=== PATIENT | male | born 1935 | race Caucasian/White ===

== ENCOUNTER → 2020-03-22 11:14 | Outpatient (BNVA) | payer MEDICARE, OTHER, SELFPAY | PROVIDERS: PCP Family Medicine; Referring Provider Family Medicine; Visit Provider Urology | DX: Z76.89 Persons encountering health services in other specified circumstances (principal) | CPT/HCPCS: 51700; 99212 ==

== ENCOUNTER → 2020-04-16 10:28 | Outpatient (BNVA) | payer MEDICARE, OTHER, SELFPAY | PROVIDERS: PCP Family Medicine; Visit Provider Urology | DX: Z76.89 Persons encountering health services in other specified circumstances (principal) | CPT/HCPCS: 99212 ==

== ENCOUNTER → 2020-05-01 11:02 | Outpatient (BNVA) | payer MEDICARE, OTHER, SELFPAY | PROVIDERS: PCP Family Medicine; Visit Provider Urology | DX: Z76.89 Persons encountering health services in other specified circumstances (principal) | CPT/HCPCS: 99212 ==

== ENCOUNTER → 2020-06-06 11:09 | Outpatient (BNVA) | payer MEDICARE, OTHER, SELFPAY | PROVIDERS: PCP Family Medicine; Visit Provider Urology | DX: N40.1 Benign prostatic hyperplasia with lower urinary tract symptoms (principal); R33.9 Retention of urine, unspecified; N32.89 Other specified disorders of bladder | CPT/HCPCS: 99212 ==

== ENCOUNTER 2020-06-21 07:06 | Day surgery (SDC) | payer MEDICARE, OTHER, SELFPAY ==
[2020-06-13 16:35] VITALS: BMI 24.7
--- NOTE | 2020-06-20 13:12 | HO.ANESPROP2 ---
Documented by User: Lo Mandi 06/20/20 13:39 HPI - Anesthesia Eval Consult details Narrative: 84yo M for Insertion Suprapubic Tube Reviewed with Dr Juancarlos BELLO Past Medical History Medical History Bipolar 1 disorder Bladder spasms CHF (congestive heart failure) Depression GERD (gastroesophageal reflux disease) HTN (hypertension) Pacemaker Parkinson's disease Urinary retention Wheelchair confinement Functional capacity: wheelchair bound Surgical History Surgical History H/O cystoscopy H/O prostatectomy H/O right knee surgery Social History Social History Are you a primary palliative care nurse practitioner to a significant other at home: No Do you presently have visiting nurse or other home services: Yes (PT,OT,VNA, home health aide Wednesday-Wednesday 8 hours) Alcohol intake: never Smoking Status: Never smoker Use of substances other than those prescribed or required for medical reasons: No Advance Directives: No Advance Directives Information Provided: No Meds Allergies Allergy/AdvReac Type Severity Reaction Status Date / Time amoxicillin [AMOXICILLIN] AdvReac Unknown STOMACH Verified 06/21/20 07:18 UPSET Home Medications Medication Instructions Recorded Confirmed Type carvedilol 3.125 mg tablet 3.125 mg PO BID 03/22/20 06/13/20 History tamsulosin 0.4 mg capsule 0.4 mg PO DAILY 03/22/20 06/13/20 History acetaminophen 650 mg PO BEDTIME PRN 06/13/20 06/13/20 History aspirin 325 mg PO DAILY 06/13/20 06/13/20 History bethanechol chloride 50 mg PO TID 06/13/20 06/13/20 History carbidopa-levodopa TID 06/13/20 History docusate sodium [Colace] 100 mg PO DAILY 06/13/20 06/13/20 History furosemide 20 mg PO Q OTHER DAY 06/13/20 06/13/20 History guar gum [Benefiber (guar gum)] 1 tbsp PO DAILY 06/13/20 06/13/20 History lamotrigine 25 mg PO BID 06/13/20 06/13/20 History melatonin 3 mg PO BEDTIME PRN 06/13/20 06/13/20 History multivitamin 1 tab PO DAILY 06/13/20 06/13/20 History sodium polystyrene sulfonate 15 g PO DAILY 06/13/20 06/13/20 History Exam Exam Date and Time: June 20, 2020 1312 Height,Weight and Vital Signs: Height 5 ft 3 in Weight 63.503 kg Pertinent Lab Results Pertinent Lab Results: 05/11/20 Na 147 (H) K 4.8 Cl 111 (H) CO2 24 BUN 22 (H) Creat 2.0 (H) WBC 6.4 HGB 9.3 HCT 29.2 PLT 215 Narrative Narrative: [place] Pacer Interr 04/2020 on chart DDDR-80 AP 41% [employer]>99% Battery life 2.7years EKG 04/13/20 A-sensed, V-paced with Prolonged AV conduction Per cardiac note ECHO 2018 EF 30% mod to sev MR AR Documented by User: Falguni Osborn 06/21/20 08:10 PMF Past Medical History Medical History Bipolar 1 disorder Bladder spasms CHF (congestive heart failure) Depression GERD (gastroesophageal reflux disease) HTN (hypertension) Pacemaker Parkinson's disease Urinary retention Wheelchair confinement Surgical History Surgical History H/O cystoscopy H/O prostatectomy H/O right knee surgery Social History Social History Are you a primary palliative care nurse practitioner to a significant other at home: No Do you presently have visiting nurse or other home services: Yes (PT,OT,VNA, home health aide Wednesday-Wednesday 8 hours) Alcohol intake: never Smoking Status: Never smoker Use of substances other than those prescribed or required for medical reasons: No Advance Directives: No Advance Directives Information Provided: No Meds Allergies Allergy/AdvReac Type Severity Reaction Status Date / Time amoxicillin [AMOXICILLIN] AdvReac Unknown STOMACH Verified 06/21/20 07:18 UPSET Home Medications Medication Instructions Recorded Confirmed Type carvedilol 3.125 mg tablet 3.125 mg PO BID 03/22/20 06/13/20 History tamsulosin 0.4 mg capsule 0.4 mg PO DAILY 03/22/20 06/13/20 History acetaminophen 650 mg PO BEDTIME PRN 06/13/20 06/13/20 History aspirin 325 mg PO DAILY 06/13/20 06/13/20 History bethanechol chloride 50 mg PO TID 06/13/20 06/13/20 History carbidopa-levodopa TID 06/13/20 History docusate sodium [Colace] 100 mg PO DAILY 06/13/20 06/13/20 History furosemide 20 mg PO Q OTHER DAY 06/13/20 06/13/20 History guar gum [Benefiber (guar gum)] 1 tbsp PO DAILY 06/13/20 06/13/20 History lamotrigine 25 mg PO BID 06/13/20 06/13/20 History melatonin 3 mg PO BEDTIME PRN 06/13/20 06/13/20 History multivitamin 1 tab PO DAILY 06/13/20 06/13/20 History sodium polystyrene sulfonate 15 g PO DAILY 06/13/20 06/13/20 History Exam Airway Mallampati Class: II TM Dist: >3cm Neck ROM: Full Heart: RRR Lungs: CTA
[2020-06-21 07:43] VITALS: BP 130/63; PULSE 63; RESP 16; TEMP 37.3; O2SAT 100
[2020-06-21] MEDS: 0.9 % Sodium Chloride 1,000 ML 50 ML IVCONT (08:01)
--- NOTE | 2020-06-21 08:32 | MHC.SHP ---
Pre-Procedural Eval Section A The patient is an INPATIENT: No The History & Physical has been completed within 30 days and I have reviewed it.: Yes Section B Chief Complaint: urine retension Allergies: Allergies Allergy/AdvReac Type Severity Reaction Status Date / Time amoxicillin [AMOXICILLIN] AdvReac Unknown STOMACH Verified 06/21/20 07:18 UPSET Plan Diagnosis/Plan: Unchanged I have reviewed the history and physical and performed a pertinent physical examination on my patient. No changes have occurred unless specified.
--- NOTE | 2020-06-21 09:38 | P.BOP_ITS ---
Brief Operative Note Date of Service: 06/21/20 Post-op diagnosis: same Procedure: Suprapubic tube placement Implants: Twenty [place] Hernandez catheter Surgeon: Puneet Azar III, MD Anesthesia: GLMA Estimated blood loss (mL): 0 Pathology: none sent Condition: stable Disposition: same day
--- NOTE | 2020-06-21 09:40 | P.OP_ITS ---
Operative Note Operative Note Date of Service: 06/21/20 Narrative: Preop diagnosis neurogenic bladder Postop diagnosis neurogenic bladder Surgeons ahmet Procedure suprapubic tube placement anesthesia general estimated blood loss none complications none drains 20 [place] Hernandez catheter Patient was taken to the operating room after adequate with anesthesia was achieved patient underwent a time-out demonstrating correct patient correct procedure. Patient was placed in dorsal lithotomy position. Pre-existing Hernandez catheter was removed. Patient then had a Nevigo tractor placed the the urethra and palpated on the lower abdomen. Air palpation was marked patient had in cision made the skin and then with the tractor against the abdominal wall Bovie cautery was used to expose the end of the tractor which was brought to the incision. A jaws were opened for 20 [place] Hernandez catheter was placed and then inserted into the patient's bladder via the tractor. Patient underwent cystoscopy the balloon was filled under direct vision. Patient's suprapubic tube r is in his bladder. After this the tube was sutured into place.
[2020-06-21 09:45] VITALS: BP 120/52; PULSE 60; RESP 16; TEMP 36.2; O2SAT 96
[2020-06-21 09:50] VITALS: BP 107/56; PULSE 66; RESP 16; O2SAT 95
[2020-06-21 09:55] VITALS: BP 115/57; PULSE 64; RESP 16; O2SAT 96
[2020-06-21 10:00] VITALS: BP 119/62; PULSE 65; RESP 18; O2SAT 97
[2020-06-21 10:15] VITALS: BP 122/64; PULSE 63; RESP 16; TEMP 36.2; O2SAT 97
--- NOTE | 2020-06-21 10:27 | HO.POSTANES ---
Post Anesthesia Evaluation Post Anesthesia Evaluation Vital Signs: Vital Signs Temp Pulse Resp BP Pulse Ox 06/21/20 10:15 97.2 F 63 16 122/64 97 06/21/20 10:00 65 18 119/62 97 06/21/20 09:55 64 16 115/57 L 96 06/21/20 09:50 66 16 107/56 L 95 06/21/20 09:45 97.2 F 60 16 120/52 L 96 06/21/20 07:43 99.2 F 63 16 130/63 100 Anesthesia: General LMA Mental Status: Awake Pain Control: Satisfactory Nausea/Vomiting: None Hydration: Adequate Anesthesia-Related Issues: No Anes. Related Issues
== END 2020-06-21 10:43 | disposition home or self-care (01) ==
PROVIDERS: PCP Family Medicine; Visit Provider Urology
PROC: (CPT 51102; principal; 2020-06-21 08:50)
DX: N40.1 Benign prostatic hyperplasia with lower urinary tract symptoms (principal); N31.9 Neuromuscular dysfunction of bladder, unspecified; R33.8 Other retention of urine; N32.89 Other specified disorders of bladder; G20 Parkinson's disease; I11.0 Hypertensive heart disease with heart failure; I50.9 Heart failure, unspecified; F31.9 Bipolar disorder, unspecified; Z99.3 Dependence on wheelchair; Z79.899 Other long term (current) drug therapy; Z88.1 Allergy status to other antibiotic agents
CPT/HCPCS: 51102; J1580; J1956; J2370; J3010

== ENCOUNTER → 2020-07-04 13:28 | Outpatient (BNVA) | payer MEDICARE, OTHER, SELFPAY | PROVIDERS: PCP Family Medicine; Visit Provider Urology | DX: R33.9 Retention of urine, unspecified (principal) | CPT/HCPCS: 99212 ==

== ENCOUNTER → 2020-08-01 13:10 | Outpatient (BNVA) | payer MEDICARE, OTHER, SELFPAY | PROVIDERS: PCP Family Medicine; Visit Provider Urology | DX: Z43.5 Encounter for attention to cystostomy (principal); N40.1 Benign prostatic hyperplasia with lower urinary tract symptoms; N13.8 Other obstructive and reflux uropathy; R33.8 Other retention of urine | CPT/HCPCS: 51705; 99212 ==

== ENCOUNTER → 2021-02-26 14:45 | Outpatient (BNVA) | payer MEDICARE, OTHER, SELFPAY | PROVIDERS: Visit Provider Urology | DX: R33.9 Retention of urine, unspecified (principal); N31.9 Neuromuscular dysfunction of bladder, unspecified | CPT/HCPCS: 99212 ==

== ENCOUNTER → 2021-08-27 15:11 | Outpatient (BNVA) | payer MEDICARE, OTHER, SELFPAY | PROVIDERS: Visit Provider Urology | DX: N31.9 Neuromuscular dysfunction of bladder, unspecified (principal) | CPT/HCPCS: 52000; 99212 ==

== ENCOUNTER → 2021-11-14 10:32 | Outpatient (BNVA) | payer MEDICARE, OTHER, SELFPAY | PROVIDERS: PCP Family Medicine; Visit Provider Urology | DX: R33.9 Retention of urine, unspecified (principal) | CPT/HCPCS: 51705 ==

== ENCOUNTER → 2021-12-05 11:06 | Outpatient (BNVA) | payer MEDICARE, OTHER, SELFPAY | PROVIDERS: PCP Family Medicine; Visit Provider Urology | DX: Z43.5 Encounter for attention to cystostomy (principal); N31.9 Neuromuscular dysfunction of bladder, unspecified | CPT/HCPCS: 51705 ==

== ENCOUNTER → 2022-03-05 12:44 | Outpatient (BNVA) | payer MEDICARE, OTHER, SELFPAY | PROVIDERS: PCP Family Medicine; Visit Provider Urology | DX: N31.9 Neuromuscular dysfunction of bladder, unspecified (principal); N39.0 Urinary tract infection, site not specified; R33.9 Retention of urine, unspecified | CPT/HCPCS: 99212 ==

== ENCOUNTER → 2022-03-13 11:15 | Outpatient (REF) | payer MEDICARE, OTHER, SELFPAY ==
--- NOTE | ~2022-03-13 | NM_ITS ---
EXAMINATION: NM BONE SCAN OF THE WHOLE BODY CLINICAL INFORMATION: Localized enlarged lymph nodes. COMPARISON: No previous bone scan is available for comparison. A radiograph of the chest dated 12/15/[address] scan of the abdomen and pelvis on the same date are available for comparison. TECHNIQUE: Multiple gamma scintillation camera images of the whole body were performed 2.5 hours following the intravenous administration of 25 mCi Tc-99m MDP. FINDINGS: In the head, no significant abnormalities are present. In the thoracic cage and upper extremities, there is mildly increased activity in the sternoclavicular joints bilaterally and minimally in the acromioclavicular joints bilaterally. There is also minimally increased activity in the sternomanubrial articulation. In the spine, there is mildly increased activity in the right posterior elements at L5-S1, probably due to facet arthropathy. There is minimally increased activity in the right costovertebral junction of T8. A minimal thoracolumbar scoliosis with lumbar convexity to the right is also noted. In the pelvis, no significant abnormalities are present. In the lower extremities, no significant abnormalities are present. No other definite bony abnormalities are noted. The urinary bladder and faint visualization of both kidneys are noted. A bladder catheter is in place. NM/NM bone scan whole body IMPRESSION: A few mild nonspecific abnormalities are noted as described above and these are all likely arthritic or traumatic in etiology. None of these abnormalities is strongly suspicious for metastatic disease.
== END ==
LOC: HO.NUCMED 11:15
PROVIDERS: PCP Family Medicine; Visit Provider Urology
DX: R59.0 Localized enlarged lymph nodes (principal)
CPT/HCPCS: 78306; A9503

== ENCOUNTER → 2022-04-09 09:22 | Outpatient (BNVA) | payer MEDICARE, OTHER, SELFPAY | PROVIDERS: PCP Family Medicine; Visit Provider Urology | DX: N40.1 Benign prostatic hyperplasia with lower urinary tract symptoms (principal); N31.9 Neuromuscular dysfunction of bladder, unspecified | CPT/HCPCS: Q3014 ==

== ENCOUNTER 2023-07-15 10:32 | Outpatient (AMB) | payer MEDICARE, OTHER, SELFPAY ==
--- NOTE | 2023-07-15 10:39 | MHC.OFFVIS ---
Intake Intake Visit Reasons: 6M Follow Up(Neurogenic Bladder) Intake Note: Patient is Present for Follow Up Urology Medication: Methenamine, Oxybutynin Antibiotic Allergies:Amoxicillin Blood Thinners:Aspirin Pharmacy Confirmed: [facility] Patient has concerns regarding Antibiotic refill for catheter changes he receives through [facility] monthly Allergies amoxicillin [AMOXICILLIN] Adverse Reaction (Unknown, Verified 07/15/23 10:40) STOMACH UPSET HPI HPI Comments History of Present Illness Details Trell is a pleasant elderly male. He is a patient with Dr Orellana. He is seen for the following urologic issues - neurogenic bladder Six-month neurogenic bladder review Had diagnosed right proximal ureteric stone in March Nephrostomy tube placed Has recovered from septic episode Notes from [facility] Discussed with son today. Plan for right ESWL to try and remove right nephrostomy tube Refill medications regarding neurogenic bladder Prior retroperitoneal lymphadenopathy noted on imaging Bone scan shows nonspecific age related changes but no evidence of metastatic disease. Neurogenic bladder Doing well suprapubic tube Reported episodes of hematuria. Cystoscopy -12/05/2021- with no abnormality in bladder Continue with his SPT changes for the [facility] Lower urinary tract symptom Long history of progressive lower urinary tract symptoms 2019 unable to empty bladder and multiple episodes of retention Status post laser prostatectomy but continues have urinary retention and high postvoid residuals May 2020 suprapubic tube placement Family is very happy. He is able to have significant independence. Is using drainage bag currently. Question prostate cancer on CT scan 03/14 [facility] [place] Medical History GERD (gastroesophageal reflux disease) Pacemaker Wheelchair confinement Parkinson's disease Depression Bipolar 1 disorder CHF (congestive heart failure) HTN (hypertension) Bladder spasms Urinary retention Surgical History H/O cystoscopy H/O prostatectomy H/O right knee surgery Social History Are you a primary home care and home health aides teacher to a significant other at home: No Do you presently have visiting nurse or other home services: Yes (PT,OT,[facility]NA, home health aide Wednesday-Wednesday 8 hours) Alcohol intake: never Review of Systems Const Denies chills and Denies fever(s) Card Reports no additional complaints and Denies syncope Resp Denies cough GI Denies abdominal pain and Denies heartburn Reports as per HPI and Denies change in libido Neuro Denies syncope Psych Denies change in libido Endo Denies change in libido Physical Exam Const General: cooperative, healthy appearing, comfortable and no acute distress Orientation/consciousness: patient oriented x3 HEENT Face and sinus: Yes normal facial exam Mouth: moist mucous membranes Neck Neck: Yes normal visual inspection, Yes full ROM and Yes trachea midline Chest Chest palpation & inspection: normal inspection of the chest Resp Effort & Inspection: normal respiratory effort, able to speak in complete sentences and no respiratory distress GI Inspection: Yes normal to inspection Back/Spine/Pelvis Cervical Spine: normal cervical lordosis Thoracic/Lumbar Spine: thoracic and lumbar spine normal to inspection Skin General skin exam: no rashes or lesions noted Neuro General: patient oriented x3, gait normal, tone normal and moves all extremities Extrem General: Yes normal to inspection and Yes capillary refill normal Assessment & Plan Assessment & Plan (1) Neurogenic urinary bladder disorder: Code(s): N31.9 - Neuromuscular dysfunction of bladder, unspecified (2) Renal and ureteric calculus: Code(s): N20.2 - Calculus of kidney with calculus of ureter Plan Extracorporeal Shock Wave Lithotripsy We discussed the nature of the decision and reasonable alternatives for performing the above surgery. Interventions include chemical dissolution, ESWL, ureteroscopy with laser lithotripsy and stent placement, PCNL. Options such as medical therapy were discussed. The relative uncertainties and benefits related to each alternate procedure were adequately discussed. General surgical risks including, but not limited to, pain, bleeding, infection, myocardial infarction, pulmonary embolus, deep vein thrombosis and cerebrovascular accident which may result in further hospitalization were discussed. Full disclosure of the procedure as well as all major risks, benefits and complications were discussed including but not limited to risks of bleeding, injury to the kidney with hematoma or ceasar-hematoma, failure to fragments stone, potential for ureteric obstruction from stone passage and need for secondary procedures. There is a small long-term risk of hypertension and a question elias of diabetes. Success rate of fragmentation and passage is approximately 70- 75%. This is compared to the risks and benefits for ureteroscopy which has a higher success rate but is a more invasive procedure. The success rate of the procedure was discussed. Success of the procedure in the short-term does not necessarily guarantee that long-term success will be maintained. Suitable follow up will need to be maintained. The patient showed understanding of the discussion as well as the typical recovery time, and the outpatient nature of this procedure. Opportunity was given for questions. Repeat-back protocol used to confirm understanding. They wish to proceed with right ESWL Medications: Changed From ascorbic acid (vitamin C) must attend 07/15/23 appt for further refills 1 g PO DAILY 90 days 90 tabs 0RF N31.9 - Neuromuscular dysfunction of bladder, unspecified, N39.0 - Urinary tract infection, site not specified To ascorbic acid (vitamin C) Daily 1 g PO DAILY 90 tabs 1RF 90 days N31.9 - Neuromuscular dysfunction of bladder, unspecified, N39.0 - Urinary tract infection, site not specified From methenamine hippurate must attend 07/15/23 appt for further refills 1 g PO DAILY 90 days 90 tabs 0RF N31.9 - Neuromuscular dysfunction of bladder, unspecified, N39.0 - Urinary tract infection, site not specified To methenamine hippurate Daily 1 g PO DAILY 90 tabs 1RF 90 days N31.9 - Neuromuscular dysfunction of bladder, unspecified, N39.0 - Urinary tract infection, site not specified Refilled sulfamethoxazole-trimethoprim 400-80 mg (Bactrim) Take morning and afternoon of catheter change 1 tab PO BID 24 tabs 0RF R33.9 - Retention of urine, unspecified Patient Instructions: Imaging studies, laboratory and physical exam results were discussed and reviewed in detail. No major barriers to patient understanding were identified. An opportunity to ask questions regarding the treatment plan was provided. All questions were answered. The patient expressed understanding and agreement with the above treatment plan. The patient is aware they should contact our office by phone for worsening of their current condition or the appearance of new urologic symptoms. Compliance is encouraged with any medications and followup testing that is ordered. It is a privilege to participate in the urologic care of your patient. If you have any questions or concerns regarding treatment for the above conditions, or other urologic issues, please do not hesitate to contact me. The office telephone contact is [phone]. This note is constructed using voice recognition software. While every effort has been made to ensure accuracy supervisor plasma errors may have been included. Yours sincerely, Dr Palomo Ribera MD, ABIEL [facility] - Urology Providers of Expert, Compassionate Care for the Genitourinary System Coding Level of Care Code Est Pt Level 4 (78699) Diagnoses Neurogenic urinary bladder disorder N31.9 Renal and ureteric calculus N20.2
== END 2023-07-15 11:15 | disposition home or self-care (01) ==
PROVIDERS: PCP Family Medicine; Visit Provider Urology
DX: N31.9 Neuromuscular dysfunction of bladder, unspecified (principal); N20.2 Calculus of kidney with calculus of ureter
CPT/HCPCS: 99214

== ENCOUNTER → 2023-07-15 10:32 | Outpatient (BNVA) | payer MEDICARE, OTHER, SELFPAY | PROVIDERS: PCP Family Medicine; Visit Provider Urology | DX: N31.9 Neuromuscular dysfunction of bladder, unspecified (principal); N20.2 Calculus of kidney with calculus of ureter | CPT/HCPCS: 99212 ==

== ENCOUNTER 2023-09-08 06:20 | Day surgery (SDC) | payer MEDICARE, OTHER, SELFPAY ==
--- NOTE | ~2023-09-08 | XR_ITS ---
EXAMINATION: XR ABDOMEN KUB CLINICAL INDICATION: Right kidney stones COMPARISON: None available. TECHNIQUE: AP view of the abdomen. FINDINGS: Pacer wires, right pigtail drainage catheter and pelvic catheter are in place. Left hemipelvic phleboliths. Retained fecal material. Solid visceral outlines are obscured. Degenerative changes and dextroscoliosis. XR/XR KUB IMPRESSION: No identifiable radiopaque renal calculi.
[2023-09-08 07:59] VITALS: BMI 24.8
[2023-09-08 08:06] VITALS: BP 139/68; PULSE 60; RESP 18; TEMP 37.1; O2SAT 99
--- NOTE | 2023-09-08 08:07 | HO.ANESPROP2 ---
[facility] Active Problems Active Problems: All Active Problems Renal and ureteric calculus (Acute) Neurogenic urinary bladder disorder (Acute) BPH loc w urin obs/LUTS (Acute) Bladder spasms (Acute) Urinary retention (Acute) Past Medical History Medical History (Updated 09/03/23 @ 09:05 by Shweta Lawson, MAVIS) GERD (gastroesophageal reflux disease) Pacemaker Wheelchair confinement Parkinson's disease Depression Bipolar 1 disorder CHF (congestive heart failure) HTN (hypertension) Bladder spasms Urinary retention Functional capacity: wheelchair bound Family History Family history of problems with anesthesia: No Surgical History Surgical History History of suprapubic catheter H/O cystoscopy H/O prostatectomy H/O right knee surgery History of Problems with Anesthesia: No Social History Social History Are you a primary healthcare market consultant to a significant other at home: No Do you presently have visiting nurse or other home services: Yes (PT,OT,[facility]NA, home health aide Wednesday-Wednesday 8 hours) Alcohol intake: never Advance Directives: No Advance Directives Information Provided: Yes Meds Allergies Allergy/AdvReac Type Severity Reaction Status Date / Time amoxicillin [AMOXICILLIN] AdvReac Intermediate STOMACH Verified 09/08/23 08:01 UPSET Active Medications: Current Medications Fentanyl (Fentanyl Citrate/Pf 100 Mcg/2 Ml Vial) 25 mcg IVPUSH Q5M PRN; Protocol PRN Reason: Pain, Moderate(Pain Scale 4-6) Stop: 09/08/23 13:44 Hydromorphone HCl (Hydromorphone Hcl 0.5 Mg/0.5 Ml Syringe) 0.5 mg IVPUSH Q5M PRN; Protocol PRN Reason: Pain, Severe (Pain Scale 7-10) Stop: 09/08/23 13:45 Home Medications ?Medication ?Instructions ?Recorded ?Confirmed ?Last Taken ?Type carvedilol 3.125 mg tablet 3.125 mg PO BID 03/22/20 09/03/23 Unknown History acetaminophen 325 mg tablet 650 mg PO BEDTIME PRN Pain 06/13/20 09/03/23 Unknown History aspirin 325 mg tablet 325 mg PO DAILY 06/13/20 06/13/20 Unknown History carbidopa-levodopa TID 06/13/20 Unknown History docusate sodium 100 mg capsule 100 mg PO DAILY 06/13/20 09/03/23 Unknown History (Colace) furosemide 20 mg tablet 20 mg PO Q OTHER DAY 06/13/20 09/03/23 Unknown History guar gum 1 tbsp PO DAILY 06/13/20 06/13/20 Unknown History lamotrigine 25 mg tablet 25 mg PO BID 06/13/20 09/03/23 Unknown History melatonin 3 mg capsule 3 mg PO BEDTIME PRN Insomnia 06/13/20 06/13/20 Unknown History multivitamin 1 tab PO DAILY 06/13/20 09/03/23 Unknown History sodium polystyrene sulfonate 15 g PO DAILY 06/13/20 06/13/20 Unknown History lisinopril 2.5 mg tablet 2.5 mg PO DAILY 08/27/21 09/03/23 Unknown History baclofen 10 mg tablet 10 mg PO QID PRN Pain 09/03/23 09/03/23 Unknown History bsojlv-rinuoete-lkudsaf 1 cap PO TID 09/03/23 09/03/23 Unknown History 36,000-114,000-180,000 unit capsule,delay rel (Creon) tamsulosin 0.4 mg capsule 0.4 mg PO DAILY 09/03/23 09/03/23 Unknown History Exam Height,Weight and Vital Signs: Height 5 ft 4 in Weight 65.631 kg Airway Mallampati Class: II TM Dist: <=3cm Neck ROM: Full Loose/Missing/Broken Teeth: No Heart: rrr Lungs: cta Assessment and Plan Assessment Anesthesia Assessment: Anesthesia Plan Discussed and Chart Reviewed Final Anesthetic Review Family History of Problems with Anesthesia: No History of Problems with Anesthesia: No NPO: Yes ASA Class: III Final Preanesthetic Review: No Changes in Pt Med Stat, Meds/Allgs Chart Reviewed, Consent Obtained/Reviewed and Anes Risks/Benef Reviewed Patient Risk: Intermediate Procedure Risk: Intermediate Anesthetic Plan Anesthetic Plan: MAC: Disposition: Standard PACU
--- NOTE | 2023-09-08 08:09 | MHC.SHP ---
Pre-Procedural Eval Section A - 24 Hr Update-Section A only Date of Service: 09/08/23 The patient is an INPATIENT: No Changes since office visit: No Cold of Flu in the past 2 weeks, No New Medical Problems, No Changes in Medication and No Patient answered all questions The patient has been examined within 24 hours of the surgical procedure. The History & Physical has been completed within 30 days and I have reviewed it.: Yes Section B - Complete if H&P > 30 days Chief Complaint: Calculus of kidney with calculus of ureter Details of Present Illness: Right upper ureteric stone with PCN Allergies: Allergies Allergy/AdvReac Type Severity Reaction Status Date / Time amoxicillin [AMOXICILLIN] AdvReac Intermediate STOMACH Verified 09/08/23 08:01 UPSET Review of Systems Sugical H&P ROS: Negative: Constitution, Cardiovascular, Respiratory, Neurological, Psychiatric, Hem-Onc, Allergic/Immunologic, Gastrointestinal, Genitourinary, Musculoskeletal, Integumentary, Endocrine and Eyes/Ears/Nose/Throat Exam Surgical H&P Exam: Normal: HEENT, Normal: Heart, Normal: Lungs, Normal: Extremities, Normal: Abdomen, Normal: Skin and Normal: Neurological Plan Diagnosis/Plan: Unchanged (Right ESWL with potential removal of right PCN) I have reviewed the history and physical and performed a pertinent physical examination on my patient. No changes have occurred unless specified. Time Spent With Patient Time: Total time managing care of this patient today ____ minutes.
--- NOTE | 2023-09-08 08:55 | P.OP_ITS ---
Operative Note Operative Note Date of Service: 09/08/23 Narrative: PreOperative Diagnosis: right Renal stones Post Operative Diagnosis: no right stones seen Procedure: right nephrostogram Surgeon: Dr Palomo Ribera Anesthesia: mac/sedation Indications for procedure: The patient understands ESWL may be a staged procedure and subsequent int ervention may be required based on imaging after ESWL. Quoted stone clearance rates for a solitary procedure are in the 70-80% range based primarily on stone location. They also understand there is a risk of bleeding to the kidney, infection, damage to adjacent organs, and stone migration following the procedure. - Imaging 8mm right proximal ureter from [place] Procedure: After informed consent was verified the patient was brought to the operating room and placed in a supine position. Anesthesia was performed per protocol. Safety pause time-out was performed. Imaging was displayed in the room and laterality confirmed. No stone seen on US Fluroscopy performed - no stone clearly visible Antegrade nephrostomy performed Has good drainage to bladder No filling defect seen Decision made to not proceed with ESWL. Nephrostomy tube was capped. The patient tolerated the procedure well and was transferred to the recovery area upon completion. Post procedure imaging will be organized. There was no evidence for flank discoloration. Findings discussed with son. Two week follow-up for PCN removal. Breast [place] Node Biopsy Substrate(s) used for sentinel node biopsy in the non-neoadjuvant setting: Radiotracer and Clips General Surg. - Synoptic Notes Breast [place] Node Biopsy Substrate(s) used for sentinel node biopsy in the non-neoadjuvant setting: Radiotracer and Clips
[2023-09-08 08:59] VITALS: BP 139/56; PULSE 70; RESP 16; TEMP 36.6; O2SAT 100
[2023-09-08 09:14] VITALS: BP 118/63; PULSE 60; RESP 18; O2SAT 99
[2023-09-08 09:29] VITALS: BP 121/59; PULSE 60; RESP 18; O2SAT 99
[2023-09-08 09:44] VITALS: BP 130/59; PULSE 60; RESP 18; TEMP 36.8; O2SAT 97
== END 2023-09-08 11:33 | disposition home or self-care (01) ==
PROVIDERS: PCP Family Medicine; Visit Provider Urology
PROC: (CPT 50590; principal; 2023-09-08 08:30)
DX: N20.2 Calculus of kidney with calculus of ureter (principal); N31.9 Neuromuscular dysfunction of bladder, unspecified; R33.9 Retention of urine, unspecified; N32.89 Other specified disorders of bladder; Z90.79 Acquired absence of other genital organ(s); G20.A1 Parkinson's disease without dyskinesia, without mention of fluctuations; I11.0 Hypertensive heart disease with heart failure; I50.9 Heart failure, unspecified; Z95.0 Presence of cardiac pacemaker; F31.9 Bipolar disorder, unspecified; Z79.899 Other long term (current) drug therapy; Z88.1 Allergy status to other antibiotic agents; Z99.3 Dependence on wheelchair
CPT/HCPCS: 50431; 74018; J0131; J1956; J2250; J2704; J3010; Q9967

== ENCOUNTER → 2023-09-08 06:20 | Outpatient (BNV) | payer MEDICARE, OTHER, SELFPAY | PROVIDERS: PCP Family Medicine; Visit Provider Urology | DX: N20.2 Calculus of kidney with calculus of ureter (principal) | CPT/HCPCS: 50430 ==

== ENCOUNTER 2023-11-18 10:11 | Outpatient (AMB) | payer MEDICARE, OTHER, SELFPAY ==
--- NOTE | 2023-11-18 10:13 | A.OFFVIS_ITS ---
Intake Visit Reasons: follow up Intake Note: Patient is present for f/u Urology Medication:oxybutynin,ascorbic acid,sulfamethoxazole,methenamine hippurate Antibiotic Allergy:amoxicillin Blood Thinner:aspirin Health Support Specialist Required: No Allergies amoxicillin [AMOXICILLIN] Adverse Reaction (Intermediate, Verified 11/18/23 10:14) STOMACH UPSET Medication List - Last Reconciled 11/18/23 by Palomo Ribera MD acetaminophen 650 mg PO BEDTIME PRN ascorbic acid (vitamin C) 1 g PO DAILY 90 days aspirin 325 mg PO DAILY baclofen 10 mg PO QID PRN [carbidopa-levodopa TID] carvedilol 3.125 mg PO BID docusate sodium (Colace) 100 mg PO DAILY furosemide 20 mg PO Q OTHER DAY guar gum 1 tbsp PO DAILY lamotrigine 25 mg PO BID [id number]-fomdrpb 36,000-114,000- 180,000 unit (Creon) 1 cap PO TID lisinopril 2.5 mg PO DAILY melatonin 3 mg PO BEDTIME PRN methenamine hippurate 1 g PO DAILY 90 days multivitamin 1 tab PO DAILY oxybutynin chloride 5 mg PO BID-TID PRN sodium polystyrene sulfonate 15 grams PO DAILY sulfamethoxazole-trimethoprim 400-80 mg (Bactrim) 1 tab PO BID HPI Comments Details: Trell is a pleasant elderly male. He is a patient with Dr Orellana. He is seen for the following urologic issues - neurogenic bladder Six-month neurogenic bladder review No stone on imaging PCN tube removed today Continues with monthly changes Refilled medications Six-month follow-up Neurogenic bladder Doing well suprapubic tube Reported episodes of hematuria. Cystoscopy -12/05/2021- with no abnormality in bladder Continue with his SPT changes for the VNA Lower urinary tract symptom Long history of progressive lower urinary tract symptoms 2019 unable to empty bladder and multiple episodes of retention Status post laser prostatectomy but continues have urinary retention and high postvoid residuals May 2020 suprapubic tube placement Family is very happy. He is able to have significant independence. Is using drainage bag currently. Question prostate cancer on CT scan 03/14 Had episode of infected right renal stone which dissolved 05/15 [facility] Medical History (Updated 09/03/23 @ 09:05 by Shweta Lawson RN) GERD (gastroesophageal reflux disease) Pacemaker Wheelchair confinement Parkinson's disease Depression Bipolar 1 disorder CHF (congestive heart failure) HTN (hypertension) Bladder spasms Urinary retention Surgical History History of suprapubic catheter H/O cystoscopy H/O prostatectomy H/O right knee surgery Social History Are you a primary residential care facility manager to a significant other at home: No Do you presently have visiting nurse or other home services: Yes (PT,OT,VNA, home health aide Wednesday-Wednesday 8 hours) Alcohol intake: never Patient Tobacco Use Status: Never used Tobacco Review of Systems Const Denies chills and Denies fever(s) Card Reports no additional complaints and Denies syncope Resp Denies cough GI Denies abdominal pain and Denies heartburn Reports as per HPI and Denies change in libido Neuro Denies syncope Psych Denies change in libido Endo Denies change in libido Physical Exam Const General: cooperative, healthy appearing, comfortable and no acute distress Orientation/consciousness: patient oriented x3 HEENT Face and sinus: Yes normal facial exam Mouth: moist mucous membranes Neck Neck: Yes normal visual inspection, Yes full ROM and Yes trachea midline Chest Chest palpation & inspection: normal inspection of the chest Resp Effort & Inspection: normal respiratory effort, able to speak in complete sentences and no respiratory distress GI Inspection: Yes normal to inspection Back/Spine/Pelvis Cervical Spine: normal cervical lordosis Thoracic/Lumbar Spine: thoracic and lumbar spine normal to inspection Skin General skin exam: no rashes or lesions noted Neuro General: patient oriented x3, gait normal, tone normal and moves all extremities Extrem General: Yes normal to inspection and Yes capillary refill normal Assessment & Plan Assessment & Plan (1) Renal and ureteric calculus: Code(s): N20.2 - Calculus of kidney with calculus of ureter Category: Medical (2) Neurogenic urinary bladder disorder: Code(s): N31.9 - Neuromuscular dysfunction of bladder, unspecified Category: Medical Plan Six-month follow-up Medications: Refilled oxybutynin chloride Use p.r.n. for bladder spasm 5 mg PO BID-TID PRN 30 tabs 5RF bladder spasms R33.9 - Retention of urine, unspecified ascorbic acid (vitamin C) Daily 1 g PO DAILY 90 days 90 tabs 1RF N31.9 - Neuromuscular dysfunction of bladder, unspecified, N39.0 - Urinary tract infection, site not specified methenamine hippurate Daily 1 g PO DAILY 90 days 90 tabs 1RF N31.9 - Neuromuscular dysfunction of bladder, unspecified, N39.0 - Urinary tract infection, site not specified Patient Instructions: Imaging studies, laboratory and physical exam results were discussed and reviewed in detail. No major barriers to patient understanding were identified. An opportunity to ask questions regarding the treatment plan was provided. All questions were answered. The patient expressed understanding and agreement with the above treatment plan. The patient is aware they should contact our office by phone for worsening of their current condition or the appearance of new urologic symptoms. Compliance is encouraged with any medications and followup testing that is ordered. It is a privilege to participate in the urologic care of your patient. If you have any questions or concerns regarding treatment for the above conditions, or other urologic issues, please do not hesitate to contact me. The office telephone contact is [phone]. This note is constructed using voice recognition software. While every effort has been made to ensure accuracy cyber software engineer errors may have been included. Yours sincerely, Dr Palomo Ribera MD, [facility] - Urology Providers of Expert, Compassionate Care for the Genitourinary System Coding Level of Care Code Est Pt Level 3 (66187) Diagnoses Renal and ureteric calculus N20.2 Neurogenic urinary bladder disorder N31.9
== END 2023-11-18 10:35 | disposition home or self-care (01) ==
LOC: HO.HUSH 10:11
PROVIDERS: PCP Family Medicine; Visit Provider Urology
DX: N20.2 Calculus of kidney with calculus of ureter (principal); N31.9 Neuromuscular dysfunction of bladder, unspecified
CPT/HCPCS: 99213

== ENCOUNTER → 2023-11-18 10:11 | Outpatient (BNVA) | payer MEDICARE, OTHER, SELFPAY | PROVIDERS: PCP Family Medicine; Visit Provider Urology | DX: N31.9 Neuromuscular dysfunction of bladder, unspecified (principal); N20.2 Calculus of kidney with calculus of ureter | CPT/HCPCS: 99212 ==

== ENCOUNTER 2024-05-08 11:05 | Outpatient (AMB) | payer MEDICARE, OTHER, SELFPAY ==
--- NOTE | 2024-05-08 11:18 | A.OFFVIS_ITS ---
Intake Visit Reasons: 6m follow up Intake Note: Patient presents today for follow up on: neurogenic bladder disorder Urology Medication:oxybutynin,ascorbic acid,sulfamethoxazole,methenamine Antibiotic Allergy:amoxicillin Blood Thinner:aspirin Drafting Engineer Required: No Accompanied by: Unknown Allergies amoxicillin [AMOXICILLIN] Adverse Reaction (Intermediate, Verified 05/08/24 11:48) STOMACH UPSET Medication List - Last Reconciled 05/08/24 by BRITANY Hale acetaminophen 650 mg PO BEDTIME PRN ascorbic acid (vitamin C) 1 g PO DAILY 90 days aspirin 325 mg PO DAILY baclofen 10 mg PO QID PRN [carbidopa-levodopa TID] carvedilol 3.125 mg PO BID docusate sodium (Colace) 100 mg PO DAILY furosemide 20 mg PO Q OTHER DAY guar gum 1 tbsp PO DAILY lamotrigine 25 mg PO BID oodivw-mfloigmi-netbkig 36,000-114,000- 180,000 unit (Creon) 1 cap PO TID lisinopril 2.5 mg PO DAILY melatonin 3 mg PO BEDTIME PRN methenamine hippurate 1 g PO DAILY 90 days multivitamin 1 tab PO DAILY oxybutynin chloride 5 mg PO BID-TID PRN sodium polystyrene sulfonate 15 grams PO DAILY sulfamethoxazole-trimethoprim 400-80 mg (Bactrim) 1 tab PO BID tamsulosin 0.4 mg PO DAILY HPI Comments Details: Trell is a pleasant elderly 88 year old male patient with Dr Orellana who was accompanied by his worker Nolan at today's office visit. He has a past medical history of GERD, pacemaker and follows with [place] [facility], wheelchair dependent, Parkinson's, depression, bipolar disorder, CHF, hypertension, urinary retention, and dementia. Presents to the office today for follow-up of his neurogenic bladder. In discussion with Nolan who provides much of today's history as he is patient's primary sub assembly team worker and patient suffers from dementia in his somewhat a poor historian at times throughout today's office visit he reports patient to be doing and feeling well. He denies any bothersome urinary issues or concerns. He reports patient continues with monthly suprapubic tube catheterization changes without any issues. He reports compliance with methenamine, vitamin-C, and oxybutynin as needed. He reports compliance with antibiotic therapy prior to catheter changes. He denies patient to have hematuria, flank pain, fever, and or chills. Patient with a history of nephrolithiasis requiring PCNL in the past. Nolan reports patient also follows up with Oncology in [place] Dr. Weiss for his history of prostate cancer and undergoes GnRH injections and PSA surveillance monitoring with oncology. In assessment of the patient today suprapubic tube site appears clean dry and intact. No drainage, redness, and or odor noted. We discussed surveillance monitoring of history of nephrolithiasis however Nolan reports it is difficult to get patient out to appointments in does not feel this is necessary at this time patient is also in agreement. He otherwise offers no other issues or concerns at this time. PREVIOUS OFFICE NOTE: Neurogenic bladder Doing well suprapubic tube Reported episodes of hematuria. Cystoscopy -12/05/2021- with no abnormality in bladder Continue with his SPT changes with VNA services Lower urinary tract symptom Long history of progressive lower urinary tract symptoms 2020 unable to empty bladder and multiple episodes of retention Status post laser prostatectomy but continues have urinary retention and high postvoid residuals May 2020 suprapubic tube placement Family is very happy. He is able to have significant independence. Is using drainage bag currently. Question prostate cancer on CT scan 03/14 Had episode of infected right renal stone which dissolved 05/15 [facility] Medical History GERD (gastroesophageal reflux disease) Pacemaker Wheelchair confinement Parkinson's disease Depression Bipolar 1 disorder CHF (congestive heart failure) HTN (hypertension) Bladder spasms Urinary retention Surgical History History of suprapubic catheter H/O cystoscopy H/O prostatectomy H/O right knee surgery Social History Are you a primary behavioral health care coordinator to a significant other at home: No Do you presently have visiting nurse or other home services: Yes (PT,OT,VNA, home health aide Wednesday-Wednesday 8 hours) Alcohol intake: never Patient Tobacco Use Status: Never used Tobacco Review of Systems Const Unobtainable due to mental status Physical Exam Const General: cooperative, comfortable, no acute distress, well developed, alert, awake and tired appearing Orientation/consciousness: oriented to person Limitations: wheelchair HEENT Head: Yes normal to inspection Eyes General: appearance normal, both eyes and all related structures Neck Neck: Yes normal visual inspection Chest Chest palpation & inspection: normal inspection of the chest Resp Effort & Inspection: normal respiratory effort and able to speak in complete sentences Cardio Rate: regular rate GI Inspection: Yes normal to inspection Other: as per HPI General: Yes CVA tenderness Back/Spine/Pelvis Back: CVA tenderness Skin General skin exam: no rashes or lesions noted Neuro General: oriented to person Extrem General: Yes normal to inspection Psych Appearance: well kempt Speech and movement: Clear speech present and Other speech and movement exam findings present (Psych) (slow to respond) Affect: normal affect Attitude: cooperative Insight: Fair insight present (Psych) Judgement: Fair judgement present (Psych) Assessment & Plan Assessment & Plan (1) Renal and ureteric calculus: Code(s): N20.2 - Calculus of kidney with calculus of ureter Category: Medical (2) BPH loc w urin obs/LUTS: Code(s): N40.1 - Benign prostatic hyperplasia with lower urinary tract symptoms Category: Medical (3) Neurogenic urinary bladder disorder: Code(s): N31.9 - Neuromuscular dysfunction of bladder, unspecified Category: Medical (4) Urinary retention: Code(s): R33.9 - Retention of urine, unspecified Category: Medical (5) Bladder spasms: Code(s): N32.89 - Other specified disorders of bladder Category: Medical (6) Prostate cancer: Code(s): C61 - Malignant neoplasm of prostate Category: Medical Plan Continue with monthly suprapubic tube catheter changes with VNA services as planned in discussed. Patient currently denies any bothersome urinary issues or concerns. Continue methenamine, vitamin-C, and oxybutynin as prescribed. Discussed surveillance monitoring of nephrolithiasis. Continue to follow-up with oncology for surveillance monitoring of PSAs as planned. Continue antibiotic/Bactrim day of catheter changes. Follow-up in 6 months; or sooner with any issues, concerns, and or questions. Patient Instructions: The patient had an opportunity to ask questions regarding the treatment plan. All questions were answered. Physical exam, labs, and imaging were discussed and reviewed in detail. As well as risks, benefits, and discussion of treatment choices. No major barriers to understanding were identified. The patient expressed understanding and agreement with the above treatment plan. The patient was made aware they should contact our office by phone for worsening of their current condition, the appearance of new symptoms, or with any questions or concerns. Compliance is encouraged with any medications and follow up testing that is ordered. It is a privilege to be allowed the opportunity to participate in? your urological care.? Again, if you have any questions or concerns If you have any questions or concerns please do not hesitate to contact me. The office is [phone]. This note is constructed using voice recognition software. While every effort has been made to ensure accuracy sharepoint solutions architect errors may have been included. Yours sincerely, GAGAN Hale Coding Level of Care Code Est Pt Level 3 (87403) Complex EM visit Add On G2211 Diagnoses Renal and ureteric calculus N20.2 BPH loc w urin obs/LUTS N40.1 Neurogenic urinary bladder disorder N31.9 Urinary retention R33.9 Bladder spasms N32.89 Prostate cancer C61
== END 2024-05-08 11:48 | disposition home or self-care (01) ==
LOC: HO.HUSH 11:05
PROVIDERS: PCP Family Medicine; Visit Provider Nurse Practitioner Family
DX: N20.2 Calculus of kidney with calculus of ureter (principal); N40.1 Benign prostatic hyperplasia with lower urinary tract symptoms; N31.9 Neuromuscular dysfunction of bladder, unspecified; R33.9 Retention of urine, unspecified; N32.89 Other specified disorders of bladder; C61 Malignant neoplasm of prostate
CPT/HCPCS: 99213; G2211

== ENCOUNTER → 2024-05-08 11:05 | Outpatient (BNVA) | payer MEDICARE, OTHER, SELFPAY | PROVIDERS: PCP Family Medicine; Visit Provider Nurse Practitioner Family | DX: N31.9 Neuromuscular dysfunction of bladder, unspecified (principal); N20.2 Calculus of kidney with calculus of ureter; N40.1 Benign prostatic hyperplasia with lower urinary tract symptoms; R33.8 Other retention of urine; N32.89 Other specified disorders of bladder; C61 Malignant neoplasm of prostate; Z99.3 Dependence on wheelchair | CPT/HCPCS: 99212 ==

== ENCOUNTER 2024-07-24 11:02 | Outpatient (AMB) | payer MEDICARE, OTHER, SELFPAY ==
--- NOTE | 2024-07-24 10:21 | MHC.OFFVIS ---
Intake Visit Reasons: New nephro tube and stones Allergies amoxicillin [AMOXICILLIN] Adverse Reaction (Intermediate, Verified 05/08/24 11:48) STOMACH UPSET Medication List - Last Reconciled 07/24/24 by GAGAN Hale acetaminophen 650 mg PO BEDTIME PRN baclofen 10 mg PO QID [carbidopa-levodopa TID] carvedilol 3.125 mg PO BID furosemide 20 mg PO Q OTHER DAY guar gum 1 tbsp PO DAILY lamotrigine 25 mg PO BID pwjjsy-lodlpprj-ueqavks 36,000-114,000- 180,000 unit (Creon) 1 cap PO TID lisinopril 2.5 mg PO DAILY multivitamin 1 tab PO DAILY tamsulosin 0.4 mg PO DAILY HPI Comments Details: Trell is a pleasant elderly 88 year old male patient with Dr Orellana who was accompanied by his home health worker Nolan and during today's telehealth visit. He has a past medical history of GERD, pacemaker and follows with [place] [facility], wheelchair dependent, Parkinson's, depression, bipolar disorder, CHF, hypertension, urinary retention, and dementia. In discussion with patient's home health aide as well as patient's who provides much of today's history it appears patient was recently hospitalized at [facility] 07/03/24-07/18/24 for sepsis likely related to enterococcal bacteremia and the source may have been Enterococcus pyelonephritis proximal to left ureteral obstruction however urine cultures to confirm this diagnosis are not yet obtained. It appears patient with current IV antibiotic therapy due to left lead pacemaker vegetation and he his due to follow up with infectious disease Dr. Cordoba 07/27/24. Left-sided nephrostomy tube was placed on 07/05 at [facility] due to CT revealed left-sided hydronephrosis with medial pelvis/ureteral stones per discharge notes. In discussion with family today it appears nephrostomy tube as well as suprapubic tube are draining without difficulty. The discusses how well the patient is doing very well when compared to just 2 months ago. She discusses patient having labs drawn twice per week and is due to schedule up with ID, Cardiology, and primary care. We discussed further surgical intervention to include ureteroscopy. Patient's states that Lasix and lisinopril are on hold as patient was receiving antibiotic therapy. CT 07/03/2024 notes multiple left renal calyceal, pelvic and ureteric calculi with mild hydroureteronephrosis; largest calculus in the upper ureter measuring 2.3 cm and another 1.4 cm calculus in the mid ureter. No hydronephrosis or ureterolithiasis on the right. Bilateral renal cysts. Known right renal interpolar mass better seen on prior contrast enhanced CTs. He denies hematuria, flank pain, fever, and or chills. Patient with a longstanding history of nephrolithiasis requiring PCNL in the past he also reports following up with Oncology and [place] Dr. Balderas for his history of prostate cancer in undergoes GnRH injections and PSA surveillance monitoring with Oncology. He otherwise offers no other issues or concerns at this time. PREVIOUS OFFICE NOTE: Neurogenic bladder Doing well suprapubic tube Reported episodes of hematuria. Cystoscopy -12/05/2021- with no abnormality in bladder Continue with his SPT changes with VNA services Lower urinary tract symptom Long history of progressive lower urinary tract symptoms 2020 unable to empty bladder and multiple episodes of retention Status post laser prostatectomy but continues have urinary retention and high postvoid residuals May 2020 suprapubic tube placement Family is very happy. He is able to have significant independence. Is using drainage bag currently. Question prostate cancer on CT scan 03/14 Had episode of infected right renal stone which dissolved 05/15 [facility] Medical History GERD (gastroesophageal reflux disease) Pacemaker Wheelchair confinement Parkinson's disease Depression Bipolar 1 disorder CHF (congestive heart failure) HTN (hypertension) Bladder spasms Urinary retention Surgical History History of suprapubic catheter H/O cystoscopy H/O prostatectomy H/O right knee surgery Social History Are you a primary doggy daycare activities director to a significant other at home: No Do you presently have visiting nurse or other home services: Yes (PT,OT,VNA, home health aide Wednesday-Wednesday 8 hours) Alcohol intake: never Patient Tobacco Use Status: Never used Tobacco Review of Systems Const Unobtainable due to mental status Physical Exam Const General: cooperative, healthy appearing, comfortable, no acute distress, well developed, alert and awake Limitations: other limitations (hard of hearing) Resp Effort & Inspection: normal respiratory effort and able to speak in complete sentences Psych Appearance: grossly normal and well kempt Attitude: cooperative Thought content: Normal thought content present Insight: Limited insight present (Psych) Judgement: Limited judgement present (Psych) Telehealth Telehealth Telehealth Platform: [employer]ryn Location of provider rendering services: practice address Location of patient: address on file Patient Identification confirmed using: Name, : Yes Telehealth method: video Patient verbally consented to treatment: Yes Patient verbally consented to billing insurance company: Yes Patient informed of any privacy concerns related to visit: Yes Minutes spent on Phone/Video with Pt.: 22 Assessment & Plan Assessment & Plan (1) Prostate cancer: Code(s): C61 - Malignant neoplasm of prostate Category: Medical (2) Renal and ureteric calculus: Code(s): N20.2 - Calculus of kidney with calculus of ureter Category: Medical (3) Neurogenic urinary bladder disorder: Code(s): N31.9 - Neuromuscular dysfunction of bladder, unspecified Category: Medical (4) BPH loc w urin obs/LUTS: Code(s): N40.1 - Benign prostatic hyperplasia with lower urinary tract symptoms Category: Medical Plan: Ureteroscopy We discussed the nature of the decision and reasonable alternatives for performing ureteroscopy. Options such as medical therapy were discussed. Interventions include chemical dissolution, ESWL, ureteroscopy with laser lithotripsy and stent placement, PCNL. The relative uncertainties and benefits related to each alternate procedure were adequately discussed. General surgical risks including, but not limited to - pain, bleeding, infection, myocardial infarction, pulmonary embolus, deep vein thrombosis and cerebrovascular accident which may result in further hospitalization were discussed.? Full disclosure of the procedure as well as all major risks, benefits and complications were discussed including but not limited to damage to the urethra, bladder and kidney infection, damage to the ureter, stent migration or malposition, scarring to the renal pelvis, remnant stone fragments, subsequent stone passage with need for secondary procedures. The overall secondary procedure rate is approximately 10-15%.? The overall clearance rate is approximately 90-95%. Success of the procedure in the short-term does not necessarily guarantee that long-term success will be maintained. Suitable follow up will need to be maintained. The patient showed understanding of discussion and wishes to proceed with - cystoscopy, retrograde, ureteroscopy, possible lithotripsy/stone basketing and stent on the left side. Plan Previous Dora Aneta notes were reviewed. Orders given for VNA regarding suprapubic tube as well as left-sided nephrostomy tube. Continue to follow-up with ID, Cardiology, and primary care as planned. We discussed intervention to include left-sided ureteroscopy and risks and benefits of this intervention was discussed at length. All questions were answered. Will schedule for surgical procedure as discussed. Medications: Discontinued sulfamethoxazole-trimethoprim 400-80 mg (Bactrim) Take morning and afternoon of catheter change Discontinued Reason: Patient no longer taking 1 tab PO BID 24 tabs 0RF R33.9 - Retention of urine, unspecified oxybutynin chloride Use p.r.n. for bladder spasm Discontinued Reason: Patient no longer taking 5 mg PO BID-TID PRN 30 tabs 5RF bladder spasms R33.9 - Retention of urine, unspecified ascorbic acid (vitamin C) Daily Discontinued Reason: Doctor's Order 1 g PO DAILY 90 days 90 tabs 1RF N31.9 - Neuromuscular dysfunction of bladder, unspecified, N39.0 - Urinary tract infection, site not specified methenamine hippurate Daily Discontinued Reason: Patient no longer taking 1 g PO DAILY 90 days 90 tabs 1RF N31.9 - Neuromuscular dysfunction of bladder, unspecified, N39.0 - Urinary tract infection, site not specified Patient Instructions: The patient had an opportunity to ask questions regarding the treatment plan. All questions were answered. Physical exam, labs, and imaging were discussed and reviewed in detail. As well as risks, benefits, and discussion of treatment choices. No major barriers to understanding were identified. The patient expressed understanding and agreement with the above treatment plan. The patient was made aware they should contact our office by phone for worsening of their current condition, the appearance of new symptoms, or with any questions or concerns. Compliance is encouraged with any medications and follow up testing that is ordered. It is a privilege to be allowed the opportunity to participate in? your urological care.? Again, if you have any questions or concerns If you have any questions or concerns please do not hesitate to contact me. The office is [phone]. This note is constructed using voice recognition software. While every effort has been made to ensure accuracy hazardous waste management specialist errors may have been included. Yours sincerely, Marissa Jacobs, SUBSTANCE ADDICTION COORDINATOR-BC Coding Level of Care Code Tele Est Pt Level 4 (89605) Complex EM visit Add On G2211 Diagnoses Prostate cancer C61 Renal and ureteric calculus N20.2 Neurogenic urinary bladder disorder N31.9 BPH loc w urin obs/LUTS N40.1
--- OUTSIDE RECORDS SUMMARY | 2024-07-24 13:10 | XMS_ITS ---
Author Organization [facility] Address Unknown Allergies, Adverse Reactions, Alerts Substance Reaction Status Noted Date Resolved Date Amoxicillin Nausea active 12/20/2019 Problems Problem Status Start Date End Date MUSCLE WASTING AND ATROPHY, NOT ELSEWHERE CLASSIFIED, RIGHT SHOULDER (Primary) (M62.511 - ICD-10-CM) ACTIVE 12/20/2019 MUSCLE WASTING AND ATROPHY, NOT ELSEWHERE CLASSIFIED, LEFT SHOULDER (M62.512 - ICD-10-CM) ACTIVE 12/20/2019 DYSPHAGIA, OROPHARYNGEAL PHASE (R13.12 - ICD-10-CM) AC TIVE 12/20/2019 UNSPECIFIED ABNORMALITIES OF GAIT AND MOBILITY (R26.9 - ICD-10-CM) ACTIVE 12/20/2019 SCHIZOAFFECTIVE DISORDER, 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) ACTIVE 12/20/2019 HEMATURIA, UNSPECIFIED (R31.9 - ICD-10-CM) ACTIVE 12/20/2019 HYPOTENSION, UNSPECIFIED (I95.9 - ICD-10-CM) ACTIVE 12/20/2019 ACUTE KIDNEY FAILURE, UNSPECIFIED (N17.9 - ICD-10-CM) ACTIVE 12/20/2019 UNSPECIFIED SYSTOLIC (CONGES TIVE) HEART FAILURE (I50.20 - ICD-10-CM) ACTIVE 12/20/2019 RETENTION OF URINE, UNSPECIFIED (R33.9 - ICD-10-CM) AC TIVE 12/20/2019 BENIGN PROSTATIC HYPERPLASIA WITH LOWER URINARY TRACT SYMPTOMS (N40.1 - ICD-10-CM) ACTIVE 12/20/2019 HYPERLIPIDEMIA, UNSPECIFIED (E78.5 - ICD-10-CM) ACTIVE 12/20/2019 CARDIOMYOPATHY, UNSPECIFIED (I42.9 - ICD-10-CM) ACTIVE 12/20/2019 SICK SINUS SYNDROME (I49.5 - ICD-10-CM) ACTIVE 0 12/20/2019 PRESENCE OF CARDIAC PACEMAKER (Z95.0 - ICD-10-CM) ACTI VE 12/20/2019 ESSENTIAL (PRIMARY) HYPERTENSION (I10 - ICD-10-CM) ACT MARY 12/26/2019 Encounters Encounter Performer Performer Role Encounter Diagnoses Location Date Discharge - Home - Private home/apt. with no home health services [facility] 12/20/2019 04:32 pm EDT - 01/31/2020 03:04 pm EDT Immunizations Vaccine Date Influenza 02/23/2019 12:00 am EDT TB 2 Step Mantoux Skin Test 12/21/2019 0 4:30 pm EDT PCV13 (Pneumococcal Conjugate)Vaccine 12:00 am EDT Social History
--- OUTSIDE RECORDS SUMMARY | 2024-07-24 13:10 | XMS_ITS | Clinical Summary ---
Author Organization [facility], Address [address] [address] Phone Care Team Providers Care Diet Technician Registered Name Role Phone Guillermo Ríos MD Primary Care Provider Unava ilable Allergies Active Allergy Reactions Criticality Noted Date Comments Amoxicillin Other (see comments) 05/02/2017 Medications melatonin tablet Take 6 mg by mouth at night if needed Active Multiple Vitamin (MULTIVITAMINS PO) as directed Active tamsulosin (FLOMAX) 0.4 MG 24 hr capsule Take 0.4 mg by mouth daily Active bethanechol (URECHOLINE) 50 MG tablet Take 50 mg by mouth 3 times a day 0 Active carbidopa-levodo pa (SINEMET) 25-100 MG per tablet Take 1 tablet by mouth 3 times a day 0 Active Acetaminophen 325 MG capsule Take 650 mg by mouth 0 Active carvedilol (COREG) 3.125 MG tablet Take 1 tablet by mouth 2 (two) times a day 0 Active furosemide (LASIX) 20 MG tablet Take 20 mg by mouth 3 (three) times a week Active docusate sodium (Colace) 100 MG capsule Take 100 mg by mouth daily 0 Active lamoTRIgine (LaMICtal) 25 MG tablet Take 25 mg by mouth twice a day 0 Active aspirin 325 MG tablet Take 325 mg by mouth daily 0 Active sodium polystyrene sulfonate (KAYEXALATE) powder Take 15 g by mouth daily 454 g 1 0 Active simvastatin (ZOCOR) 20 MG tablet Take 20 mg by mouth daily 0 Active Entresto 24-26 MG per tablet Take 1 tablet by mouth as directed 0 Active omeprazole (PriLOSEC) [address] capsule 0 Active oxybutynin (DITROPAN) 5 MG tablet Take 5 mg by mouth daily 1 Active Active Problems Problem Noted Date Diagnosed Date Stage 3a chronic kidney disease 08/12/2020 Essential hypertension 05/13/2020 Obstruction of urinary bladder outlet 04/15/2020 Anemia in chronic kidney disease 04/15/2020 Urinary tract infection 03/30/2020 Overview (04/10/2020): Last Assessment & Plan: completed treatment 04/04 (cefepime for 7 days) Hypernatremia 03/29/2020 Overview (04/10/2020): Last Assessment & Plan: -Due to postobstructive polyuria- improved Hyperkalemia 03/27/2020 Overview (04/10/2020): Last Assessment & Plan: -Potassium was 7.6 on admission, improved -Continue to hold SONY inhibitor, BP okay Acute nontraumatic kidney injury 11/06/2019 Overview (04/10/2020): Last Assessment & Plan: -Presents the hospital due to abnormal lab work. History of recurrent urine retention. CT with hydronephrosis bilateral. Feldman placed in the ED initially yellow urine followed by clot and aki blood Diagnosis- obstructive uropathy + ATN- creatinine is gradually improving, peaked at 6 - nephrology is following, baseline creatinine about 1.4-1.5 -Associated hyperkalemia hypernatremia improved -Discontinue IV fluids today and recheck levels tomorrow if stable discharge to home - urology rec continue feldman catheter and follow up in urology office, with repeat ultrasound as outpatient Obstructive uropathy 11/06/2019 Overview (04/10/2020): Last Assessment & Plan: Effective decompression with Feldman catheter and gradual improvement in renal function. Trends lowish systolic. Needs outpatient urology follow-up for voiding trial Benign prostatic hyperplasia 05/05/2017 Overview (04/10/2020): Last Assessment & Plan: No current issues with urination. Patient states that he is urinating well without hesitancy or change in flow. - Post-void PVR check q shift post procedure x 2 Cardiomyopathy 05/05/2017 Overview (04/10/2020): Last Assessment & Plan: BP is better. He is symptomatically well controlled. Entresto has a better long- term prognosis for outcomes than lisinopril alone so we will switch. His EF is 30% with cardiomyopathy. Entresto starts tomorrow after SONY inhibitor washout. Will need a decision tomorrow about whether to restart furosemide. Male erectile dysfunction 05/05/2017 Mixed hyperlipidemia 05/05/2017 Overview (04/10/2020): Last Assessment & Plan: Continue simvastatin. Hypercholesterolemia Acute kidney failure Resolved Problems Problem Noted Date Diagnosed Date Resolved Date Chronic kidney disease, stage 4 (severe) 04/15/2020 08/12/2020 Anemia 04/03/2020 04/15/2020 Overview (04/10/2020): Last Assessment & Plan: multifactorial-- recent bleeding, renal disease, iatrogenic, stable over the hospital stay Iron, b12, folate levels ok Stage 3a chronic kidney disease 10/11/2018 04/15/2020 Overview (05/27/2020): Update for Diagnosis Load Hypertension 05/05/2017 05/13/2020 Overview (04/10/2020): Last Assessment & Plan: Blood pressure today is normal on his current medications. Immunizations Name Administration Dates Next Due H1N1 All Forms 06/19/2009 Influenza Split High Dose Pr eservative Free IM 03/29/2019,02/07/2018,02/18/2017,01/28,05/21/2015,05/03/2013,03/08/2012 ,02/03/2010 Influenza TIV (IM) 02/24/2011 Influenza Vaccine, Quadrival ent, Adjuvanted 03/10/2020 Influenza, Unspecified 02/05/2009 Pneumococcal Conjugate 13-Valent 05/08/2017,04/23 Pneumococcal Polysaccharide 04/23/2011 Td 10/11/2018,12/22/2007 Tdap 02/26/2007 Zoster 03/28/2012 Social History Tobacco Use Types Packs/Day Years Used Date Smoking Tobacco: Former Cigarettes Alcohol Use Standard Drinks/Week Comments Yes 0 (1 standard drink = 0.6 oz pur e alcohol) AUDIT-C Answer Date Recorded Q1: How often do you have a drink containing alc ohol? Not asked 04/10/2020 Q2: How many drinks containi ng alcohol do you have on a typical day when you are drinking? 1 or 2 04/10/2020 Q3: How often do you have six or more drinks on one occasion? 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 [employer] Not on file Not on file Not on file Plan of Treatment Health Maintenance Due Date Last Done Comments Influenza Vaccine (#1) 2024 0, 03/29/2019, 02/23/2019, Additional history exists Pneumococcal Vaccine: 65+ Years Completed 05/08/2017, 03/02/2017, 05/02/2014, Additional history exists Hepatitis B Vaccine Aged Out No longe r eligible based on patient's age to complete this topic Insurance MEDICARE [facility] Care Teams Diet Technician Registered Relationship Specialty Start Date End Date Guillermo Ríos MD PCP - General Family Medicine 03/05/20
--- OUTSIDE RECORDS SUMMARY | 2024-07-24 13:10 | XMS_ITS | Data Portability ---
Author Organization [place] [facility], Allergy Address [address] [place] [phone] Care Team Providers Care Broadcast Technician Name Role Phone MILAGRO RODRIGUEZ Primary Care Provider Assessment Encounter Date Assessment Date Assessment LastModified by Organization Details LastModified Time 11/11/2023 11/11/2023 Right mastoid debridement was performed today. There is no evidence of infection. Impacted cerumen was debrided from the left ear. Exam is otherwise stable. He will follow up in four months with for debridement. [email or web address] Not available 11/11/2023 11:04:43 06/19/2024 06/19/2024 Right mastoid debridement was performed today. Large amount of purulent discharge noted today. Recommend 7 days of topical Ciprodex drops to be used twice a day. Instructions provided to his home health provider. Impacted cerumen was debrided from the left ear, mild otorrhea noted. They will be using the Ciprodex drops in the left ear as well. Follow-up with PA in 4 months for next debridement. [email or web address] Not available 06/19/2024 13:43:57 Plan of Treatment Reminders Order Date Submit Date Provider Last Modified By Organization Details Last Modified Time Details Appointments Establish ed 15 2024 11:15A Laine BARRERA PA-C Not available Not available Not available Lab None recorded. Referral None recorded. Procedures None recorded. Surgeries None recorded. Imaging None recorded. Medication Orders ciproflox acin 0.3 %-dexamet hasone 0.1 % ear drops,dinh pension 2024 025 [facility] #[id number], [address] [facility], [place], [address], 06/19/2024 13:40:17 Patient TargetsNo targets recorded. Patient InstructionsNo instructions recorded. Reason for Referral None Reported. Results Created Date Observation Date Name Description Value Unit Range Abnormal Flag Note LastModifiedBy Organization Detail LastModifiedTime 01/12/20 24 11/11/2020 imagi ng/di agnos tic resul t No observ ation record ed. [email or web address] Not Available 06:06:54 01/12/20 24 04/12/2020 imagi ng/di agnos tic resul t No observ ation record ed. [email or web address] Not Available 06:06:56 01/12/2004/12/2020 imagi ng/di agnos tic resul t No observ ation record ed. [email or web address] Not Available 06:07:01 Result Notes None recorded. Problems Name Problem SNOMED Code Status Onset Date Resolution Date Notes Provider Name and Address Organization Details Recorded Time Otorrhea of right ear 84488746890 42717 Active 2020 Otorrhea , right ear; Note: Date Diagnose d: 1 12:12 PM (H92.11) Otorrh ea, right ear; Note: Date Diagnose d: 7 1:56 PM (H92.11) ; Start Date : 08/18/19 Not Available [facility] 4 03:04:55 Chronic right mastoidi tis 30000384774 32585 Active 2016 Chronic mastoidi tis, right ear; Note: Date Diagnose d: 7 1:23 PM (H70.11) Not Available [facility] 4 03:04:56 Otalgia of right ear 3754690477 Active 2016 Otalgia, right ear; Note: Date Diagnose d: 7 4:53 PM (H92.01) Not Available [facility] 4 03:04:57 Otorrhea of bilatera l ears 64865933001 08585 Active 2017 Otorrhea , bilatera l; Note: Date Diagnose d: 8 12:39 PM (H92.13) Not Available [facility] 4 03:04:56 Mixed conducti ve and sensorin eural hearing loss, bilatera l 757995996 Active 2015 Mixed hearing loss, bilatera l; Note: Date Diagnose d: 04/16/20 14 3:32 PM (389.22) ; Start Date : 04/16/20 14 Mixed conducti ve and sensorin eural hearing loss, bilatera l; Note: Date Diagnose d: 6 11:22 AM (H90.6) Not Available [facility] 4 03:04:57 Impacted cerumen in left ear 90461769484 63727 Active 2015 Impacted cerumen, left ear; Note: Date Diagnose d: 6 11:22 AM (H61.22) Not Available [facility] 4 03:04:58 Perforat ion of tympanic membrane 95574074 Active 2013 Perforat ion of tympanic membrane , unspecif ied; Note: Date Diagnose d: 04/16/20 14 3:32 PM (384.20) Not Available [facility] 4 03:04:56 Postmast oidectom y complica tion 12759984 Active 2015 Other disorder s followin g mastoide ctomy, right ear; Note: Date Diagnose d: 6 11:13 AM (H95.191 ) Not Available [facility] 4 03:04:58 Otorrhea of left ear 43444478206 45688 Completed 202112/24/2023 Otorrhea , left ear; Note: Date Diagnose d: 09/24/2021 4:45 PM (H92.12) Not Available [facility] 4 03:04:57 Candidal otitis externa 66777844 Active 2016 Candidal otitis externa; Note: Date Diagnose d: 7 4:48 PM (B37.84) Not Available [facility] 4 03:04:57 Acute myringit is of right ear 80178357610 93370 Active 2015 Acute myringit is, right ear; Note: Date Diagnose d: 09/30/2015 12:19 PM (H73.001 ) Not Available [facility] 4 03:04:55 Granulat ions of mastoid cavity 622365370 Active 2017 Granulat ion of postmast oidectom y cavity, right ear; Note: Date Diagnose d: 8 12:33 PM (H95.121 ) Not Available [facility] 4 03:04:56 Chronic mastoidi tis 02860211 Active 2013 Chronic mastoidi tis; Note: Date Diagnose d: 04/16/20 14 3:32 PM (383.1) Not Available [facility] 4 03:04:56 Problem Notes None recorded. Procedures Surgical History Date Name Laterality Status Provider Name and Address Organization Details Recorded Time 06/19/19 25 Debridement of Mastoid Cavity right completed DEREK BOTELLO MD [address] [place] [address], [phone], [facility] - [facility] 06/19/2024 13:39:11 11/11/19 24 Debridement of Mastoid Cavity right completed ABY ROBLEDO PA-C [address] [place] [address], [phone], [facility] - [facility] 11/11/2023 11:03:47 Pacemaker completed Natalie [place] [facility] 06/19/2024 13:24:41 Imaging Results Imaging Date Name Status LastModified by Organiz ation Details LastModified Time 11/11/2020 imaging/diag nostic result completed Information not available 01/12/2024 06:06:54 04/12/2020 imaging/diag nostic result completed Information not available 01/12/2024 06:06:56 04/12/2020 imaging/diag nostic result completed Information not available 01/12/2024 06:07:01 Procedure Notes None recorded. Medical Equipment None Reported. Allergies Allergen ID Allergen Name Allergen Category Reaction Reaction Severity Criticality Documentation Date Start Date Code Code System Note Provider Name and Address Organization Details Recorded Time [id number] amoxicill in medicatio n nausea Not available Not available 10/05/2023 723 RxNorm React ion: nause a;; Not Available [facility] 01:22:42 Medications Name Sig Start Date Stop Date Status Note LastModified by Organization Details LastModified Time furosemid e 40 mg tablet 2013 active Medicati on ID: Du ration Value: 90 Brand Name: furosemi de Send Method: E-Prescr ibed Sub s Allowed: subs OK Speci al Instruct ion: TK SS TO ONE T PO D Medica tionGene ricName: furosemi de Not Available Not Available Not Available Vitamin C 500 mg tablet TAKE 2 TABLETS BY MOUTH EVERY DAY FOR 90 DAYS 06/19 completed Not Available Not Available Not Available trazodone 50 mg tablet TAKE 1 TABLET BY MOUTH NIGHTLY AT BEDTIME NEEDED. 06/19 completed Not Available Not Available Not Available sulfameth oxazole 400 mg-trimet hoprim 80 mg tablet TAKE 1 TABLET BY MOUTH TWICE A DAY THE MORNING AND AFTERNOO N OF CATHETAR CHANGE 06/19 completed Not Available Not Available Not Available senna 8.6 mg tablet TAKE 2 TABLETS BY MOUTH NIGHTLY AT BEDTIME. 06/19 completed Not Available Not Available Not Available cefepime 2 gram solution for injection 06/19 completed Not Available Not Available Not Available lisinopri l 20 mg tablet 07/08 completed Medicati on ID: Du ration Value: 90 Brand Name: lisinopr il Send Method: E-Prescr ibed Sub s Allowed: subs OK Speci al Instruct ion: TK 1 T PO D Medica tionGene ricName: lisinopr il Not Available Not Available Not Available levofloxa carisa 250 mg tablet TAKE 1 TABLET BY MOUTH DAILY FOR 7 DAYS. 06/19 completed Not Available Not Available Not Available ciproflox acin 500 mg tablet 1 tablet by mouth 06/19 completed Medicati on ID: [id number] D uration Value: 10 Prescri bed By Name: Shanon Saxena nd Name: ciproflo xacin HCl Send Method: E-Prescr ibed Sub s Allowed: subs OK Medic ationGen ericName : ciproflo xacin HCl Not Available Not Available Not Available cefazolin 10 gram solution for injection 06/19 completed Not Available Not Available Not Available spironola ctone 25 mg tablet TAKE 1/2 TABLET BY MOUTH EVERY DAY 06/19 completed Not Available Not Available Not Available vancomyci n 125 mg capsule TAKE 1 CAPSULE BY MOUTH 4 TIMES A DAY. 06/19 completed Not Available Not Available Not Available carvedilo l 3.125 mg tablet TAKE 1 TABLET BY MOUTH TWICE A DAY active Not Available Not Available No t Available lamotrigi ne 25 mg tablet TAKE 1 TABLET BY MOUTH TWICE A DAY active Not Available Not Available No t Available methenami ne hippurate 1 gram tablet TAKE 1 TABLET ORALLY DAILY FOR 90 DAYS DAILY active Not Available Not Available No t Available tamsulosi n 0.4 mg capsule TAKE 1 CAPSULE BY MOUTH EVERY DAY active Not Available Not Available No t Available baclofen 10 mg tablet TAKE 1 TABLET (10 MG TOTAL) BY MOUTH 4 (FOUR) TIMES A DAY NEEDED (SPASTIC ITY/CONT RACTIONS ). active Not Available Not Available No t Available lithium carbonate 300 mg capsule 06/19 completed Medicati on ID: Du ration Value: 90 Brand Name: lithium carbonat e Send Method: E-Prescr ibed Sub s Allowed: subs OK Speci al Instruct ion: TK 2 CS PO QHS Medi cation nericNam e: lithium carbonat e Not Available Not Available Not Available simvastat in 20 mg tablet 06/19 completed Medicati on ID: Du ration Value: 90 Brand Name: simvasta tin Send Method: E-Prescr ibed Sub s Allowed: subs OK Speci al Instruct ion: TK 1 T PO ONCE D IN THE EVENING Medicati onGeneri cName: simvasta tin Not Available Not Available Not Available oxybutyni n chloride ER 5 mg tablet,ex tended release 24 hr 06/19 completed Medicati on ID: [id number] B rand Name: oxybutyn in chloride Send Method: E-Prescr ibed Sub s Allowed: subs OK Medic ationGen ericName : oxybutyn in chloride Not Available Not Available Not Available furosemid e 20 mg tablet TAKE 1 TABLET BY MOUTH TWICE A DAY active Not Available Not Available No t Available carbidopa 25 mg-levodo pa 100 mg tablet 06/19 completed Medicati on ID: [id number] B rand Name: carbidop a-levodo pa Send Method: E-Prescr ibed Sub s Allowed: subs OK [facility] carbidop a-levodo pa Not Available Not Available Not Available oxybutyni n chloride 5 mg tablet TAKE 1 TABLET ORALLY 2 TO 3 TIMES A DAY NEEDED FOR BLADDER SPASMS active Not Available Not Available No t Available lisinopri l 2.5 mg tablet TAKE 1 TABLET BY MOUTH EVERY DAY active Not Available Not Available No t Available oxycodone 5 mg tablet TAKE 0.5 TABLETS (2.5 MG TOTAL) BY MOUTH EVERY 6 (SIX) HOURS NEEDED. PARTIAL FILL OK 06/19 completed Not Available Not Available Not Available TobraDex 0.3 %-0.1 % eye drops,dinh pension 4 drop 06/19 completed Medicati on ID: [id number] D uration Value: 14 Prescri bed By Name: Shanon Saxena nd Name: TobraDex Send Method: E-Prescr ibed Sub s Allowed: subs OK Speci al Instruct ion: apply to affected ear(s) Laine Stovall Name: TobraDex Not Available Not Available Not Available ciproflox acin 0.3 %-dexamet hasone 0.1 % ear drops,dinh pension INSTILL 4 DROPS INTO EAR TWICE A DAY FOR 7 DAYS active Not Available Not Available No t Available cholestyr amine (with sugar) 4 gram powder for susp in a packet TAKE 1 PACKET 1-2 TIMES PER DAYS WITH MEALS NEEDED FOR LOOSE STOOL active Not Available Not Available No t Available coenzyme Q10 200 mg capsule 06/19 completed Medicati on ID: [id number] Br and Name: coenzyme Q10 Send Method: E-Prescr ibed Sub s Allowed: subs OK [facility]10 Not Available Not Available Not Available Culturell e Digestive Health 10 billion cell-200 mg sprinkle capsule TAKE 1 CAPSULE BY MOUTH DAILY FOR 7 DAYS. 06/19 completed Not Available Not Available Not Available Dificid 200 mg tablet TAKE 1 TABLET (200 MG TOTAL) BY MOUTH 2 TIMES A DAY. 06/19 completed Not Available Not Available Not Available Creon 36,000 unit-114, 000 unit-180, 000 unit capsule,d elayed release TAKE 3 CAPSULES WITH MEALS AND 2 CAPSULES WITH SNACKS FOR 30 DAYS DIRECTED active Not Available Not Available No t Available Vitals Date Recorded Body height Body mass index (BMI) Body weight Provider Name and Address Organization Details Last Updated DateTime 11/11/2023 162.56 cm 28.3 kg/m2 92830.74 g Coreen Retana [place] [facility] 11/11/2023 10:41:41 Date Recorded Body height Body weight Provider Name and Address Organization Details Last Updated DateTime 06/19/2024 162.56 cm 44952.82 g Natalie Carvajal [place] [facility] 06/19/2024 13:25:48 Social History None recorded. Functional Status None recorded. Mental Status None recorded. Family History Nothing Reported. Medical History Condition Response Cancer Y Anemia Y Hearing Loss Y Dementia Y Hypertension Y Kidney Disease Y Past Encounters Encounter ID Performer Location Encounter Start Date Encounter Closed Date Diagnosis/Indication Diagnosis SNOMED-CT Code Diagnosis ICD10 Code Diagnosis Note [id number] ABY ROBLEDO PA-C [facility] on [address] [place] [phone] 11/11/2023 10:30:30 11/11/2023 11:15:48 Chronic right mastoiditis [id number] 305217 H70.11 Impacted c erumen in left ear 1483494654 237222 H61.22 [id number] DEREK BOTELLO MD [facility] on [address] [place] [phone] 06/19/2024 13:15:14 06/19/2024 13:42:56 Chronic right mastoiditis [id number] 179443 H70.11 Impacted c erumen in left ear 8504639054 758968 H61.22 Otorrhea of right ear 10 29415378 838461 H92.11 Health Concerns Section Related Observation LastModified by Organization Detai ls LastModified Time None Recorded Concern Status LastModified by Organization Details LastModified Time None Recorded Advance Directives Directive None Recorded Payers Encounter Date Sequence Insurance Name Policy Number Policy Fuentes Covered Member ID Fuentes Member ID Guarantor Name 11/11/2023 2 [facility] (MEDICARE SUPPLEMENT) Zev Johnson [id number] Trell Johnson 11/11/2023 1 [place] [employer] Trell Johnson [id number] Trell Johnson 06/19/2024 2 [facility] (MEDICARE SUPPLEMENT) Zev Johnson [id number] Trell Johnson 06/19/2024 1 [place] [facility] Trell Johnson [id number] Trell Johnson Notes Date Note Type Note Provider Name and Address Organization Details Recorded Time 11/11/2023 text/html 87 year old male with history of multiple bilateral mastoidectomies returns for routine debridement. The patient has a canal wall down mastoidectomy cavity in the right ear and a narrow canal on the left side along with a tympanic membrane retraction. He comes in with his hygiene coordinator today. Currently using binaural amplification.No specific concerns today. No ear pain or drainage. ABY ROBLEDO PA-C [address], [address], [place] - [facility] 11/11/2023 11:05:19 06/19/2024 text/html 87 year old male with history of multiple bilateral mastoidectomies returns for routine debridement. The patient has a canal wall down mastoidectomy cavity in the right ear and a narrow canal on the left side along with a tympanic membrane retraction. He comes in with his hygiene coordinator today. Currently using binaural amplification.No specific concerns today. No ear pain or drainage. DEREK BOTELLO MD [address], [address], [facility] 06/19/2024 13:45:37
== END 2024-07-24 11:17 | disposition home or self-care (01) ==
LOC: HO.HUSH 11:02
PROVIDERS: PCP Family Medicine; Visit Provider Nurse Practitioner Family
DX: C61 Malignant neoplasm of prostate (principal); N20.2 Calculus of kidney with calculus of ureter; N31.9 Neuromuscular dysfunction of bladder, unspecified; N40.1 Benign prostatic hyperplasia with lower urinary tract symptoms
CPT/HCPCS: 99214; G2211

== ENCOUNTER → 2024-07-24 11:02 | Outpatient (BNVA) | payer MEDICARE, OTHER, SELFPAY | PROVIDERS: PCP Family Medicine; Visit Provider Nurse Practitioner Family ==